=== PATIENT | male | born 2000 | race African-American/Black ===

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

== ENCOUNTER 2019-01-04 09:43 | Emergency (ER) | payer BC, OTHER ==
[2019-01-04 10:21] VITALS: BP 111/67; PULSE 81; TEMP 98.1; BMI 18.8
--- NOTE | 2019-01-04 11:20 | PDOC ---
History of Present Illness - General History Source: Patient - History of Present Illness Timing/Duration: reports: intermittent Quality: reports: mild <Sandeep Handy - Last Filed: 01/04/19 11:14> <Belkis Albright - Last Filed: 01/04/19 12:31> - General Chief Complaint: Vomiting/Diarrhea Stated Complaint: VOMITING/DIARRHEA Time Seen by Provider: 01/04/19 11:00 Past History - Past Medical History Asthma: Yes COPD: No Other medical history: fx lt hand - Immunization History Immunization Up to Date: Yes - Suicide/Smoking/Psychosocial Hx Smoking History: Current every day smoker Have you smoked in the past 12 months: Yes Number of Cigarettes Smoked Daily: 4 Information on smoking cessation initiated: No 'Breaking Loose' booklet given: 12/17/17 Hx Alcohol Use: Yes Drug/Substance Use Hx: Yes (marijuana) Substance Use Type: Alcohol <Danita HandyLibradoCarly - Last Filed: 01/04/19 11:14> <Belkis Albright - Last Filed: 01/04/19 12:31> - Past Medical History Allergies/Adverse Reactions: Allergies Allergy/AdvReac Type Severity Reaction Status Date / Time No Known Allergies Allergy Verified 01/04/19 10:17 Home Medications: Ambulatory Orders Ondansetron HCl [Zofran] 4 mg PO Q8H #12 tablet 01/04/19 Ranitidine HCl [Zantac] 150 mg PO DAILY #10 tablet 01/04/19 Review of Systems - Review of Systems Constitutional: No: Chills, Fever, Malaise, Weakness ABD/GI: Yes: Diarrhea, Nausea, Vomiting. No: Abdominal cramping <Sandeep Handy - Last Filed: 01/04/19 11:14> *Physical Exam - Vital Signs Last Vital Signs Temp Pulse Resp BP Pulse Ox 98.1 F 81 16 111/67 97 01/04/19 10:20 01/04/19 10:20 01/04/19 10:20 01/04/19 10:20 01/04/19 10:20 - Physical Exam Comments: 01/04/19 11:25 pt well ephraim, currently texting on phone General Appearance: Yes: Appropriately Dressed. No: Apparent Distress HEENT: positive: Normal Voice Neck: positive: Supple Respiratory/Chest: negative: Respiratory Distress Gastrointestinal/Abdominal: positive: Normal Bowel Sounds, Soft. negative: Tender, Distended, Guarding, Rebound Integumentary: positive: Dry, Warm Neurologic: positive: Fully Oriented, Alert, Normal Mood/Affect <Sandeep Handy - Last Filed: 01/04/19 11:14> - Vital Signs Last Vital Signs Temp Pulse Resp BP Pulse Ox 98.1 F 81 16 111/67 97 01/04/19 10:20 01/04/19 10:20 01/04/19 10:20 01/04/19 10:20 01/04/19 10:20 <Belkis Albright - Last Filed: 01/04/19 12:31> Medical Decision Making - Medical Decision Making 01/04/19 11:14 18 yo M, no sig hx, here w/ n/v/d. States sxs started after eating seafood 2 days ago. States he's had about 3 episodes of nonbilious, nonbloody vomiting and 2 episodes of nonbloody watery stools. Denies abdominal pain, fever or chills. States son who ate the seafood also with similar symptoms see exam Possible mild gastroenteritis No RF for serious dysentery No abd pain to suspect appy at this time Pt well ephraim and stable w/ benign abd -dc w/ supportive tx -reasons to return d/w pt <Sandeep Handy - Last Filed: 01/04/19 11:14> - Medical Decision Making The patient was seen and evaluated in conjunction with midlevel provider under my direct supervision, ancillary studies were reviewed. I agree with the plan as outlined CHRIS Handy. HPI, workup/dispo as outlined. VS reviewed, wnl. supportive care, DC in stable condition 01/04/19 12:31 <Belkis Albright - Last Filed: 01/04/19 12:31> *DC/Admit/Observation/Transfer <Sandeep Handy - Last Filed: 01/04/19 11:14> <Belkis Albright - Last Filed: 01/04/19 12:31> Diagnosis at time of Disposition: Nausea & vomiting Qualifiers: Vomiting type: unspecified Vomiting Intractability: non-intractable Qualified Code(s): R11.2 - Nausea with vomiting, unspecified Diarrhea Qualifiers: Diarrhea type: unspecified type Qualified Code(s): R19.7 - Diarrhea, unspecified - Discharge Dispostion Disposition: HOME Condition at time of disposition: Good - Prescriptions Prescriptions: Ondansetron HCl [Zofran] 4 mg PO Q8H #12 tablet Ranitidine HCl [Zantac] 150 mg PO DAILY #10 tablet - Patient Instructions Printed Discharge Instructions: Viral Gastroenteritis Additional Instructions: You most likely have a viral illness which is self limited. It usually runs its course and get better Drink plenty of fluids and take medicine as directed until symptoms resolve If symptoms worsen and/or you develop abdominal pain, please return for further evaluation - Post Discharge Activity Forms/Work/School Notes: Back to Work
== END 2019-01-04 11:25 | disposition home or self-care (01) ==
LOC: JER 09:43
DX: R11.2 Nausea with vomiting, unspecified (principal); R19.7 Diarrhea, unspecified
CPT/HCPCS: 99281-25

== ENCOUNTER 2020-03-07 01:31 | Emergency (ER) | payer BC, OTHER ==
[2020-03-07 02:41] VITALS: TEMP 98.3; BMI 18.4
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
[2020-03-07 04:01] LABS: HEMATOCRIT 42.9 % (35.4-49); HEMOGLOBIN 14.5 GM/dL (11.7-16.9); MCH 31.6 pg (25.7-33.7); MCHC 33.8 g/dl (32.0-35.9); MEAN CELL VOLUME 93.5 fl (80-96); PLATELET COUNT 184 K/MM3 (134-434); RBC 4.59 M/mm3 (4.00-5.60); RDW 13.6 % (11.9-15.9); WHITE BLOOD COUNT 8.6 K/mm3 (4.0-10.0)
[2020-03-07 04:02] LABS: INR 1.03 (0.83-1.09); PROTHROMBIN TIME (PATIENT) 12.2 SEC (9.7-13.0)
[2020-03-07 04:05] LABS: ACTIVATED PTT 28.8 SECONDS (25.2-36.5)
[2020-03-07 04:19] LABS: ALBUMIN 4.4 g/dl (3.4-5.0); BILIRUBIN,TOTAL 0.6 mg/dL (0.2-1); BLOOD UREA NITROGEN 14.4 mg/dL (7-18); CALCIUM 9.5 mg/dL (8.5-10.1); CREATININE 1.1 mg/dL (0.55-1.3); POTASSIUM 4.4 mmol/L (3.5-5.1); TOT PROT 7.6 g/dl (6.4-8.2)
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
[2020-03-07] MEDS ORDERED: MORPHINE SULFATE 2 MG/ML VIAL SQ PRN (04:59)
[2020-03-07] MEDS ORDERED: MORPHINE SULFATE 2 MG/ML VIAL ONE (05:13)
[2020-03-07 05:21] VITALS: BP 118/76; PULSE 63
[2020-03-07] MEDS ORDERED: ACETAMINOPHEN 1000 MG/100 ML VIAL (NON FORMULARY) IVPB ONE (06:12)
[2020-03-07] MEDS ORDERED: ACETAMINOPHEN INJECTION 100 ML IVPB ONE (06:25)
--- NOTE | 2020-03-07 12:05 | EKG ---
Test Reason : Blood Pressure : / mmHG Vent. Rate : 065 BPM Atrial Rate : 065 BPM P-R Int : 140 ms QRS Dur : 086 ms QT Int : 382 ms P-R-T Axes : 066 090 061 degrees QTc Int : 397 ms NORMAL SINUS RHYTHM RIGHTWARD AXIS BORDERLINE ECG WHEN COMPARED WITH ECG OF 25-OCT-2016 12:57, NO SIGNIFICANT CHANGE WAS FOUND Confirmed by Blake Vazquez MD ([id number]) on 03/07/2020 12:04:53 PM Referred By: Confirmed By:Blake Vazquez MD
== END 2020-03-07 07:20 | disposition home or self-care (01) ==
LOC: JER 01:31
PROC: 3E033GC Introduction of Other Therapeutic Substance into Peripheral Vein, Percutaneous Approach (ICD-10-PCS; principal; 2020-03-07)
PROC: 3E023GC Introduction of Other Therapeutic Substance into Muscle, Percutaneous Approach (ICD-10-PCS; principal; 2020-03-07)
DX: S82.832A Other fracture of upper and lower end of left fibula, initial encounter for closed fracture (principal); V28.0XXA Motorcycle driver injured in noncollision transport accident in nontraffic accident, initial encounter
CPT/HCPCS: 36415; 70450-TC; 71260-TC; 72125-TC; 73560-TC-LT-FY; 73590-TC-LT-FY; 73610-TC-RT-FY; 73630-TC-RT-FY; 74177-TC; 80053; 85027; 85610; 85730; 86850; 86900; 86901; 93005; 93010; 99285-25; J0131

== ENCOUNTER 2022-07-26 06:56 | Emergency (ER) | payer BC, OTHER ==
[2022-07-26 07:43] VITALS: BP 133/84; PULSE 66; RESP 18; TEMP 98.2; BMI 17.7
== END 2022-07-26 08:00 | disposition home or self-care (01) ==
LOC: JER 06:56
PROC: 3E023GC Introduction of Other Therapeutic Substance into Muscle, Percutaneous Approach (ICD-10-PCS; principal; 2022-07-26)
DX: A64 Unspecified sexually transmitted disease (principal)
CPT/HCPCS: 36415; 87491; 87591; 99284-25

== ENCOUNTER 2024-03-18 21:15 | Emergency (ER) | payer BC, OTHER ==
[2024-03-18 21:22] VITALS: BP 116/72; PULSE 62; RESP 18; TEMP 98; BMI 19.2
[2024-03-18] MEDS ORDERED: ACETAMINOPHEN INJECTION 100 ML IVPB ONE (22:13)
[2024-03-18] MEDS: ACETAMINOPHEN 1000 MG/100 ML BAG IVPB ONE (22:16)
[2024-03-18 22:42] LABS: HEMATOCRIT 41.2 % (35.4-49); MCH 31.2 pg (25.7-33.7); MCHC 33.9 g/dl (32.0-35.9); MEAN CELL VOLUME 92.2 fl (80-96); MEAN PLT VOLUME 9.2 fl (7.5-11.1); PLATELET COUNT 148 10^3/uL (134-434); RBC 4.47 M/mm3 (4.00-5.60); RDW 13.2 % (11.9-15.9); WHITE BLOOD COUNT 3.8 K/mm3 (4.0-10.0)
[2024-03-18 22:49] LABS: POTASSIUM 4.3 mmol/L (3.5-5.1)
[2024-03-18 22:51] LABS: CALCIUM 9.2 mg/dL (8.5-10.1)
[2024-03-18 22:52] LABS: ALBUMIN 3.6 g/dl (3.4-5.0); BLOOD UREA NITROGEN 8.8 mg/dL (7-18)
[2024-03-18 22:55] LABS: CREATININE 0.9 mg/dL (0.55-1.3)
[2024-03-18 22:56] LABS: BILIRUBIN,TOTAL 0.3 mg/dL (0.2-1)
[2024-03-18 22:57] LABS: TOT PROT 6.7 g/dl (6.4-8.2)
[2024-03-18 23:01] LABS: INR 0.92 (0.83-1.09); PROTHROMBIN TIME (PATIENT) 10.6 SEC (9.7-13.0)
[2024-03-18 23:04] LABS: ACTIVATED PTT 34.2 SECONDS (25.2-36.5)
[2024-03-18 23:53] LABS: ANISOCYTOSIS 0; MACROCYTOSIS 0
== END 2024-03-19 00:30 | disposition home or self-care (01) ==
LOC: JER 21:15
PROC: 3E033NZ Introduction of Analgesics, Hypnotics, Sedatives into Peripheral Vein, Percutaneous Approach (ICD-10-PCS; principal; 2024-03-18)
DX: U07.1 COVID-19 (principal); R05.9 Cough, unspecified; R07.81 Pleurodynia; J02.9 Acute pharyngitis, unspecified; R09.81 Nasal congestion
CPT/HCPCS: 0241U-QW; 36415; 71045-TC-FY; 71275-TC; 80053; 84484; 85025; 85379; 85610; 85730; 93005; 93010; 99285-25; J0131